=== PATIENT | female | born 1985 | race Caucasian/White ===

== ENCOUNTER 2020-08-22 12:35 | Outpatient (RCR) | payer SELFPAY ==
[~2020-08-22] VITALS: Ht 157.5 cm; Wt 98.6 kg
[~2020-08-22 12:35] MED LIST: CODE-54 PO; IBP600T1 PO
[2020-08-26] MEDS ORDERED: IBUP-1773 PO (07:22)
== END 2020-08-22 13:59 | disposition home or self-care (01) ==
LOC: PREOP 12:35
PROVIDERS: ATTEND Obstetrics & Gynecology
DX: Z01.812 Encounter for preprocedural laboratory examination (principal); O02.1 Missed abortion; Z3A.00 Weeks of gestation of pregnancy not specified

== ENCOUNTER 2020-08-26 06:05 | Day surgery (SDC) | payer OTHER ==
[~2020-08-26] VITALS: Ht 157 cm; Wt 98.6 kg
[2020-08-26] VITALS (9 sets, daily range): BP systolic 91–130; BP diastolic 53–86
[2020-08-26 06:44] LABS: BASOPHILS % (AUTO) 0 % (0-10); EOSINOPHILS # (AUTO) 0.4 10^3/uL (0.0-0.3); EOSINOPHILS % (AUTO) 4 % (0-10); HEMATOCRIT 40 % (35-52); HEMOGLOBIN 13.2 g/dL (11.5-16.0); LYMPHOCYTES # (AUTO) 3.3 10^3/uL (1.0-4.0); LYMPHOCYTES % (AUTO) 34 % (12-44); MEAN CORPUSCULAR HEMOGLOBIN 29 pg (25-34); MEAN CORPUSCULAR HGB CONC 33 g/dL (32-36); MEAN CORPUSCULAR VOLUME 87 fL (80-99); MONOCYTES # (AUTO) 0.9 10^3/uL (0.0-1.0); MONOCYTES % (AUTO) 9 % (0-12); NEUTROPHILS # (AUTO) 5.2 10^3/uL (1.8-7.8); NEUTROPHILS % (AUTO) 53 % (42-75); PLATELET COUNT 269 10^3/uL (130-400); WHITE BLOOD COUNT 9.8 10^3/uL (4.3-11.0)
[2020-08-26] MEDS ORDERED: ONDANSETRON 4 MG/2 ML (SDV) Z0FRAN ONE (06:46)
[2020-08-26] MEDS ORDERED: LIDOCAINE PF 2% 5 ML (XYLOCAINE) VIAL ONE (06:46)
[2020-08-26] MEDS ORDERED: proPOfol 200 MG/20 ML (DIPRIVAN) VIAL IV ONE (06:46)
[2020-08-26] MEDS ORDERED: KETOROLAC 30 MG/ML VIAL ONE (06:47)
[2020-08-26] MEDS ORDERED: fentaNYL INJECTION 100 MCG/2 ML AMP ONE (06:47)
[2020-08-26] MEDS ORDERED: MIDAZOLAM 2 MG/2 ML (VERSED) VIAL ONE (06:47)
[2020-08-26] MEDS ORDERED: SEVOFLURANE (ULTANE) 15 ML INHAL SOLN ONE ×2 (06:47→07:32)
[2020-08-26] MEDS ORDERED: BUPIVACAINE 0.25% 30 ML (SENSORCAINE) VIAL ONE (06:56)
[2020-08-26] MEDS: LACTATED RINGERS 1,000 ML IV PRN ×2 (07:13→07:45)
--- NOTE | 2020-08-26 07:19 | Progress Note-Pre Operative ---
Pre-Operative Progress Note H&P Reviewed The H&P was reviewed, patient examined and no changes noted. Date Seen by Provider: Aug 26, 2020 Time Seen by Provider: 07:05 Date H&P Reviewed: Aug 26, 2020 Time H&P Reviewed: 07:05 Pre-Operative Diagnosis: Missed ADONAY Guerrero DO Aug 26, 2020 07:19
--- NOTE | 2020-08-26 07:21 | Discharge Inst-Women's Service ---
Discharge Inst-Women's Serv Depart Medication/Instructions New, Converted or Re-Newed RX: RX on Chart Problems Reviewed?: Yes Consults/Follow Up Additional Follow Up: Yes Orders/Referrals Dr. Deras in 2-3 weeks Activity Activity: Activity as Tolerated Driving Instructions: No Driving for 1 Week NO SMOKING: NO SMOKING Nothing Inside Vagina: No Douching, No [place], No Tampons Diet Discharge Diet: No Restrictions Symptoms to Report to : Bleeding Excessive, Pain Increased, Fever Over 101 Degrees F, Vaginal Bleeding Increase, Questions/Concerns For Any Problems or Questions: Contact Your Physician ADONAY DERAS DO Aug 26, 2020 07:21
[2020-08-26] MEDS ORDERED: IBUP-1773 PO (07:22)
[2020-08-26] MEDS ORDERED: HYDROmorphone 2 MG/ML VIAL (DILAUDID) IV PRN (07:30)
[2020-08-26] MEDS ORDERED: ONDANSETRON 4 MG/2 ML (SDV) Z0FRAN IVP PRN ×2 (07:30→08:30)
[2020-08-26] MEDS ORDERED: D5 LR IV SOLUTION 1,000 ML IV SCH (07:30)
[2020-08-26] MEDS ORDERED: KETOROLAC 30 MG/ML VIAL IVP ONE (07:30)
[2020-08-26] MEDS ORDERED: morphine INJ 10 MG/ML 1ML (SYR OR VIAL) IVP ONE (08:30)
[2020-08-26] MEDS ORDERED: MEPERIDINE (DEMEROL) INJ 50 MG/ML IVP ONE (08:30)
[2020-08-26] MEDS ORDERED: HYDROmorphone 2 MG/ML VIAL (DILAUDID) IV ONE (08:30)
--- NOTE | 2020-08-26 08:46 | Anesthesia-General Post-Op ---
General Patient Condition Mental Status/LOC: Same as Preop Cardiovascular: Satisfactory Nausea/Vomiting: Absent Respiratory: Satisfactory Pain: Controlled Complications: Absent Post Op Complications Complications None Follow Up Care/Instructions Patient Instructions None needed. Anesthesia/Patient Condition Patient Condition Patient is doing well, no complaints, stable vital signs, no apparent adverse anesthesia problems. No complications reported per nursing. ROBBIE ALVAREZ CRNA Aug 26, 2020 08:46
--- NOTE | 2020-08-26 13:07 | OPERATIVE REPORT ---
DATE OF SERVICE: POSTOPERATIVE DIAGNOSES: A 35-year-old female with missed . POSTOPERATIVE DIAGNOSIS: A 35-year-old female with missed . PROCEDURE: Suction D and C. SURGEON: Adonay Deras DO ANESTHESIA: LMA general. ESTIMATED BLOOD LOSS: 150 mL. URINE OUTPUT: 100 mL clear at the start of the procedure. FLUIDS: 1400 mL lactated Ringer's solution. FINDINGS: A moderate amount of products of conception, grossly normal appearing external female genitalia. SPECIMEN SENT: Products of conception. INDICATIONS FOR PROCEDURE: This 35-year-old female is a patient who had sought care in my office for early . There was no pole noted on her intrauterine over the change in 3 weeks from 1 ultrasound together. There is also a drop in her beta hCG from 29,000 down to 24,2000 over that 2 week time as well. Due to the diagnosis of missed AB, I discussed with the patient continuing to wait versus proceeding with suction D and C. Risks of both were discussed with the patient in detail and after all of her questions were answered, she agreed to proceed with suction D and C. Again, in the preoperative area, everything was reviewed with the patient and all of her questions were answered, consent was obtained, the patient was taken to the operating room. OPERATIVE REPORT IN DETAIL: Once in the operating room, anesthesia was found to be adequate, placed in dorsal lithotomy position, prepped and draped in normal sterile fashion. A timeout was performed. The bladder was drained using straight catheterization. A weighted speculum was inserted to the patient's vagina. A right angle retractor was used to visualize the cervix, which was grasped at 12 o'clock position using long Allis clamp. I then performed paracervical block at 3 and 9 o'clock positions on the cervix using 0.25% Marcaine care was taken to aspirate before injecting. A total of 5 mL are injected to each site. I then gently sound the uterine cavity, depth was found to be 8 cm. I then gently dilated the cervix using Hanks dilators to allow placement of a #6 rigid Rony suction curette into the endometrium. Once this was placed in the endometrium. The Tolley suction device was attached and suction was applied to a maximum suction of 70 mmHg. I then rotated the suction tip clearing the endometrial cavity of all products of conception and debris. This was done on several different passes and between these passes, I performed a gentle sharp curettage until a gentle uterine cry is appreciated on curettage. My final pass with an endometrial curette revealed little to no bleeding from the external cervical os at which point I deemed the procedure complete. I removed all other instruments from the patient's vagina. The patient tolerated the procedure well and sent to recovery in stable condition. Lap and sponge counts were correct at the end of the procedure. Instrument counts correct as well. Job ID: [id number] DocumentID: [id number] Dictated Date: 08/26/2020 08:44:27 Janitor Caretaker Date: 08/26/2020 13:06:40 Dictated By: ADONAY DERAS DO
== END 2020-08-26 10:21 | disposition home or self-care (01) ==
LOC: SDC 06:05
PROVIDERS: ATTEND Obstetrics & Gynecology
DX: O02.1 Missed abortion (principal)
CPT/HCPCS: 36415; 85025; 86850; 86900; 86901; 87081

== ENCOUNTER → 2022-06-11 | Outpatient (CLI) | payer OTHER ==
[~2022-06-11] MED LIST changes: +IBUP-1773 PO
--- NOTE | 2022-06-11 11:24 | Diagnostic Imaging Report ---
Vaginal bleeding. Positive . EXAMINATION: Ultrasound OB less than 14 weeks 06/11/2022 FINDINGS: There is an intrauterine gestational sac and pole present with measurements corresponding with a 6 week 6 day . No cardiac activity is seen. Yolk sac noted. Adjacent to the gestational sac is a heterogeneous collection likely perigestational hemorrhage. This measures 1.6 cm in greatest dimension. The right ovary is unremarkable in size and appearance. Normal vascularity noted. Abutting the left ovary possibly exophytic from the ovary is a large nonspecific heterogeneous lesion partially solid in appearance with marked shadowing present. Its borders difficult to clearly identified per the vice president of human resources. The area measures 7.6 x 5 x 6.7 cm. There is no significant free fluid. IMPRESSION: 1. Intrauterine gestation measuring 6 weeks 6 days with no cardiac activity suggesting demise. A short-term follow-up could confirm this process as clinically indicated with correlation with beta hCG recommended as well. 2. Subchorionic hemorrhage. 3. Nonspecific shadowing lesion in the left adnexa. A dermoid lesion would be the primary consideration. Other masses not excluded with a concomitant ectopic felt to be highly unlikely but again correlation with beta hCG recommended. Follow-up of CT imaging of the pelvis with contrast is recommended for further characterization of these findings. Report was faxed to office of Dr. Soria by ahmet at 11:25am. Dictated by: Dictated on workstation # [id number]
== END ==
LOC: RAD 10:30
PROVIDERS: ATTEND Obstetrics & Gynecology
DX: O20.9 Hemorrhage in early pregnancy, unspecified (principal); Z3A.01 Less than 8 weeks gestation of pregnancy
CPT/HCPCS: 76801; 76817

== ENCOUNTER 2022-06-15 06:36 | Day surgery (SDC) | payer OTHER ==
[2022-06-15] VITALS (11 sets, daily range): BP systolic 111–135; BP diastolic 66–81
[~2022-06-15] VITALS: Ht 170.2 cm; Wt 104.0 kg
[2022-06-15] MEDS ORDERED: BUPIVACAINE 0.25% 30 ML (SENSORCAINE) VIAL ONE (06:56)
[2022-06-15] MEDS ORDERED: ROCURONIUM 10 MG/ML 5 ML SYRINGE IV ONE ×2 (07:03→08:29)
[2022-06-15] MEDS ORDERED: proPOfol 200 MG/20 ML (DIPRIVAN) VIAL IV ONE (07:03)
[2022-06-15] MEDS ORDERED: SEVOFLURANE (ULTANE) 15 ML INHAL SOLN ONE ×2 (07:03→08:37)
[2022-06-15] MEDS ORDERED: LIDOCAINE PF 2% 5 ML (XYLOCAINE) VIAL ONE (07:03)
[2022-06-15] MEDS ORDERED: ONDANSETRON 4 MG/2 ML (SDV) Z0FRAN ONE (07:03)
[2022-06-15] MEDS ORDERED: MIDAZOLAM 2 MG/2 ML (VERSED) VIAL ONE (07:03)
[2022-06-15] MEDS ORDERED: fentaNYL INJ 100 MCG/2 ML AMP ONE (07:03)
[2022-06-15] MEDS: LACTATED RINGERS 1,000 ML IV PRN ×2 (07:14→08:27)
[2022-06-15] MEDS ORDERED: ceFAZolin INJECTION 1,000 MG ONE (07:18)
--- NOTE | 2022-06-15 07:23 | Progress Note-Pre Operative ---
Pre-Operative Progress Note Date of Available H&P: Jun 11, 2022 Date H&P Reviewed: Jun 15, 2022 Time H&P Reviewed: 07:15 History & Physical: H&P Reviewed, Patient Examed, No changes noted Pre-Operative Diagnosis: Left 7 cm ovarian complex mass, Missed Ab. ADONAY DERAS DO Jun 15, 2022 07:23
[2022-06-15] MEDS ORDERED: DOCU-143 PO (07:26)
[2022-06-15] MEDS ORDERED: IBUP-1773 PO (07:26)
[2022-06-15] MEDS ORDERED: ACHD5005 PO (07:26)
[2022-06-15] MEDS: NS (IVPB) 50 ML ONE ×2 (07:26→07:56)
--- NOTE | 2022-06-15 07:26 | Discharge Inst-Women's Service ---
Discharge Inst-Women's Serv Depart Medication/Instructions New, Converted or Re-Newed RX: Transmitted to Pharmacy Problems Reviewed?: Yes Consults/Follow Up Additional Follow Up: Yes Orders/Referrals Dr. Soria in 7-10 weeks Activity Activity: Activity as Tolerated Driving Instructions: No Driving for 1 Week NO SMOKING: NO SMOKING Nothing Inside Vagina: No Douching, No [place], No Tampons Diet Discharge Diet: No Restrictions Symptoms to Report to : Bleeding Excessive, Pain Increased, Fever Over 101 Degrees F, Vaginal Bleeding Increase, Questions/Concerns For Any Problems or Questions: Contact Your Physician Skin/Wound Care Infection Signs and Symptoms: Increased Redness, Foul Odor of Wound, Increased Drainage, Skin Itchy or Has a Rash, Increased Swelling, Temperature Above 101 F Operative Area Clean and Dry: Keep Incision Clean/Dry Stitches/[place]/Dermabond: Dermabond, Care of Stitches Bathing Instructions: ADONAY Barber DO Jun 15, 2022 07:26
[2022-06-15 07:27] LABS: BASOPHILS % (AUTO) 1 % (0-10); EOSINOPHILS # (AUTO) 0.4 10^3/uL (0.0-0.3); EOSINOPHILS % (AUTO) 4 % (0-10); HEMATOCRIT 39 % (35-52); HEMOGLOBIN 13.2 g/dL (11.5-16.0); LYMPHOCYTES # (AUTO) 2.7 10^3/uL (1.0-4.0); LYMPHOCYTES % (AUTO) 31 % (12-44); MEAN CORPUSCULAR HEMOGLOBIN 29 pg (25-34); MEAN CORPUSCULAR HGB CONC 34 g/dL (32-36); MEAN CORPUSCULAR VOLUME 86 fL (80-99); MEAN PLATELET VOLUME 9.6 fL (9.0-12.2); MONOCYTES # (AUTO) 0.8 10^3/uL (0.0-1.0); MONOCYTES % (AUTO) 9 % (0-12); NEUTROPHILS # (AUTO) 4.9 10^3/uL (1.8-7.8); NEUTROPHILS % (AUTO) 56 % (42-75); PLATELET COUNT 307 10^3/uL (130-400); WHITE BLOOD COUNT 8.8 10^3/uL (4.3-11.0)
[2022-06-15] MEDS ORDERED: ONDANSETRON 4 MG/2 ML (SDV) Z0FRAN IVP PRN ×2 (07:30→09:15)
[2022-06-15] MEDS ORDERED: D5 LR IV SOLUTION 1,000 ML IV SCH (07:30)
[2022-06-15] MEDS ORDERED: HYDROcodone/APAP 5 MG/325 MG (LORTAB) TAB PO PRN (07:30)
[2022-06-15] MEDS ORDERED: KETOROLAC 30 MG/ML VIAL IVP ONE (07:30)
[2022-06-15] MEDS ORDERED: BUPIVACAINE 0.25% 30 ML (SENSORCAINE) VIAL INJ ONE (08:33)
[2022-06-15] MEDS ORDERED: PHENYLEPHRINE 100 MCG/ML 10 ML (ANESTHESIA) SYR ONE (08:37)
[2022-06-15] MEDS ORDERED: NEOSTIGMINE (BLOXIVERZ ) 1 MG/1ML 10 ML VIAL ONE (08:41)
[2022-06-15] MEDS ORDERED: GLYCOPYRROLATE 0.2 MG/ML (ROBINUL) 2 ML VIAL ONE (08:41)
[2022-06-15] MEDS ORDERED: KETOROLAC 30 MG/ML VIAL ONE (09:03)
--- NOTE | 2022-06-15 09:04 | Anesthesia-General Post-Op ---
General Patient Condition Mental Status/LOC: Same as Preop Cardiovascular: Satisfactory Nausea/Vomiting: Absent Respiratory: Satisfactory Pain: Controlled Complications: Absent Post Op Complications Complications None Follow Up Care/Instructions Patient Instructions None needed. Anesthesia/Patient Condition Patient Condition Patient is doing well, no complaints, stable vital signs, no apparent adverse anesthesia problems. No complications reported per nursing. JOSSIE ZAMARRIPA CRNA Jun 15, 2022 09:04
[2022-06-15] MEDS ORDERED: morphine INJ 10 MG/ML 1ML (SYR OR VIAL) ONE (09:07)
[2022-06-15] MEDS ORDERED: MEPERIDINE (DEMEROL) INJ 50 MG/ML IVP ONE (09:15)
[2022-06-15] MEDS ORDERED: morphine INJ 10 MG/ML 1ML (SYR OR VIAL) IVP ONE (09:15)
[2022-06-15] MEDS ORDERED: PROMETHAZINE INJ 25 MG/ML (PHENERGAN) AMP IVP ONE (09:15)
[2022-06-15] MEDS ORDERED: HYDROcodone/APAP 5 MG/325 MG (LORTAB) TAB ONE (10:02)
--- NOTE | 2022-06-15 15:02 | OPERATIVE REPORT ---
DATE OF SERVICE: PREOPERATIVE DIAGNOSES: 1. A 36-year-old female with missed . 2. Left ovarian enlargement of 7 cm noted on ultrasound. POSTOPERATIVE DIAGNOSES: 1. A 36-year-old female with missed . 2. Left ovarian enlargement of 7 cm noted on ultrasound. 3. Left ovarian teratoma. SURGEON: Adonay Deras DO ANESTHESIA: General endotracheal. ESTIMATED BLOOD LOSS: 100 mL. URINE OUTPUT: 200 mL clear at the end of the procedure. FLUIDS: 1300 mL lactated Ringer's solution. FINDINGS: Grossly normal-appearing external female genitalia with a moderate amount of products of conception cleared with suction curettage, also left ovarian enlargement approximately 7 to 8 cm in the largest diameter. Grossly normal-appearing right ovary, bilateral fallopian tubes and uterus, grossly normal appearing upper abdominal anatomy. SPECIMEN SENT: Left ovary and products of conception. Pelvic washing cytology. INDICATIONS FOR PROCEDURE: This 36-year-old female is a patient who had sought care in my office for irregular bleeding. She was found to have a positive test. Ultrasound followup showed a demise approximately 6 to 8 weeks as well as a left ovarian cyst that had a complex appearance. She was having significant discomfort on the left side and into her back. I discussed with the patient addressing this is the same time as we performed suction D and C. Risks of procedure were discussed with the patient in detail. After all of her questions were answered in the preoperative area, consent was obtained, the patient was taken to the operating room. OPERATIVE REPORT IN DETAIL: Once in the operating room, general anesthesia was found to be adequate. She was placed in the dorsal lithotomy position, prepped and draped in normal sterile fashion. Timeout was performed. Renteria catheter was placed using sterile technique. A weighted speculum inserted into the patient's vagina, which was grasped at 12 o'clock position using a single tooth tenaculum. I then gently sounded the uterine cavity, depth was found to be 8 cm. I then gently dilated cervix using Hanks dilators to maximum dilatation approximately 8 mm, at which point I selected 8 mm rigid suction curette and advanced into the uterus. I attached the [employer] suction and applied suction up to pressure of 70 mmHg, at which point I cleared the endometrial cavity methodically by rotating the suction device and moving it in and out, clearing all products of conception. This was done on several passes until I feel an adequate uterine cry is appreciated. I then performed a gentle sharp curettage with a medium size endometrial curette and again, no residual tissue was noted. I then placed a Kronner uterine manipulator to a depth of 8 cm deploying the balloon. I removed all the other instruments from the patient's vagina, performed change of gloves, turned my attention to the abdomen, where at the midclavicular line on the left side subcostally, two fingerbreadths, I introduced the Veress needle until intraperitoneal placement was confirmed using a saline drop test. An opening pressure of 5 mmHg was noted. I proceeded with CO2 insufflation to maximum pressure of 15 mmHg, at which point, I made a 5 mm infraumbilical incision and directed a 5 mm blunt laparoscopic trocar through the incision until intraperitoneal placement was confirmed using the laparoscope. There was no evidence of damage from entry. A brief scanning of the upper abdominal anatomy appears to be grossly normal. There is no evidence of damage upon my Veress entry site. I removed the Veress needle under direct visualization of laparoscope. I then had the patient placed in steep Trendelenburg where I am able to visualize all my pelvic anatomy as defined in my findings above. I made a 12 mm incision suprapubically and advanced a 12 mm trocar through this incision until intraperitoneal placement was confirmed. Once this was in place, I approached the left ovary by starting with a LigaSure device at the uteroovarian ligament. I sealed and transected this using the LigaSure device and took this down the mesovarium to the IP ligament, liberating the ovary from its surrounding structural attachments and blood supply. I then introduced a 10 mm Endopouch bag through this incision and able to scoop the ovary into the Endopouch bag without difficulty. It was brought up to the abdominal wall where due to its size could not be delivered through the 12 mm incision. I have to extend this to approximately 4 cm laterally, approximately 2.5 cm in each direction, left and right. Once the incision was extended, I am able to squeeze the ovary out through the enlarged incision but lose my insufflation in doing so, the ovary is removed intact and ruptured on its way out where I am able to appreciate a cheesy thick material noted containing hair consistent with a dermoid cyst on the surgical field, none leaks into the abdomen that I am aware of. I then am able to stabilize insufflation by securing the skin and the fascia back together using a Gretchen clamp and introduced a 12 mm trocar back through the edge of that incision. I am able to copiously irrigate the pelvis using normal saline. There was no active bleeding noted from any of my dissection planes, at which point I have the patient taken out of steep Trendelenburg and released insufflation through the larger incision and removed the 5 mm trocar. The 4 cm incision fascia was closed using 0 Vicryl suture in a running fashion. The subcutaneous tissue was reapproximated using 3-0 plain interrupted subcutaneous stitch and skin reapproximated using 4-0 Monocryl running subcuticular. Dermabond was applied over the incision as well and then Dermabond was also applied over the infraumbilical 5 mm trocar site and the puncture wound subcostally at the midclavicular line on the left. These were all covered with Band-Aids and sterile dressings. Renteria catheter was removed. Kronner uterine manipulator was removed at the end of procedure. The patient tolerated the procedure well and sent to recovery area in stable condition. Lap and sponge counts were correct at the end of procedure. Instrument counts correct as well. One gram of Ancef is given preoperatively for infection prophylaxis. Job ID: [id number] DocumentID: [id number] Dictated Date: 06/15/2022 09:21:18 Editing Internship Date: 06/15/2022 15:01:57 Dictated By: ADONAY DERAS DO [email or web address]
== END 2022-06-15 11:15 | disposition home or self-care (01) ==
LOC: SDC 06:36
PROVIDERS: ATTEND Obstetrics & Gynecology
DX: O02.1 Missed abortion (principal); D27.1 Benign neoplasm of left ovary; E66.9 Obesity, unspecified; Z68.35 Body mass index [BMI] 35.0-35.9, adult
CPT/HCPCS: 36415; 85025; 86850; 86900; 86901; 87081; 88112; 88305; 88307

== ENCOUNTER → 2022-08-12 | Outpatient (CLI) | payer OTHER ==
[~2022-08-12] MED LIST changes: +ACHD5005 PO; +DOCU-143 PO
--- NOTE | 2022-08-12 14:33 | Diagnostic Imaging Report ---
PROCEDURE: Pelvic comp/transvaginal sonogram. TECHNIQUE: Complete transabdominal and transvaginal pelvic ultrasound was performed. In addition, limited pelvic Doppler was performed. INDICATION: Left lower quadrant pain. Patient status post left oophorectomy in May 2022. FINDINGS: Uterus is anteverted measuring 6.9 x 3.1 x 5.3 cm. Endometrium is 5 mm in thickness. No myometrial mass is detected. Right ovary measures 3.2 x 3.0 x 2.3 cm. There is blood flow to the right ovary. Left ovary is surgically absent. No adnexal mass or free fluid is detected. IMPRESSION: Surgically absent left ovary. The study is otherwise unremarkable. Dictated by: Dictated on workstation # [id number]
== END ==
LOC: RAD 12:54
PROVIDERS: ATTEND Obstetrics & Gynecology
DX: R10.32 Left lower quadrant pain (principal); Z90.721 Acquired absence of ovaries, unilateral
CPT/HCPCS: 76830; 76856